=== PATIENT | female | born 1945 | race Two or more races ===

== ENCOUNTER 2018-08-02 13:00 | Outpatient (CLI) | payer OTHER | END 2018-08-02 13:09 | disposition home or self-care (01) | LOC: RAD 501 13:00 | DX: M25.531 Pain in right wrist (principal); M25.532 Pain in left wrist; M79.641 Pain in right hand; M79.642 Pain in left hand ==

== ENCOUNTER 2018-08-21 08:13 | Outpatient (CLI) | payer OTHER | END 2018-08-21 08:17 | disposition home or self-care (01) | LOC: NUCLEAR 08:13 | DX: M81.0 Age-related osteoporosis without current pathological fracture (principal) ==

== ENCOUNTER 2018-08-28 08:21 | Outpatient (CLI) | payer OTHER | END 2018-08-28 08:34 | disposition home or self-care (01) | LOC: SONOGRAMA 08:21 | DX: M25.511 Pain in right shoulder (principal) ==

== ENCOUNTER → 2018-08-28 11:13 | Outpatient (CLI) | payer OTHER | END | disposition home or self-care (01) | LOC: LAB 11:13 | DX: E83.42 Hypomagnesemia (principal); E88.89 Other specified metabolic disorders; M81.8 Other osteoporosis without current pathological fracture; E56.1 Deficiency of vitamin K ==

== ENCOUNTER → 2018-09-25 | Outpatient (CLI) | payer OTHER | END | disposition home or self-care (01) | LOC: TOM 10:47 | DX: M19.031 Primary osteoarthritis, right wrist (principal) ==

== ENCOUNTER 2018-12-18 08:04 | Outpatient (CLI) | payer OTHER ==
[2018-12-20] MEDS ORDERED: DILTIAZEM 24HR240 MG PO (14:50)
[2018-12-20] MEDS ORDERED: ASA81 MG PO (14:50)
[2018-12-20] MEDS ORDERED: HYDROCHLOROTHIA25 MG PO (14:50)
[2018-12-20] MEDS ORDERED: LIPITOR40 MG PO (14:51)
== END 2018-12-18 08:18 | disposition home or self-care (01) ==
LOC: LAB 08:04
DX: D64.89 Other specified anemias (principal); E88.89 Other specified metabolic disorders; D68.8 Other specified coagulation defects; N39.0 Urinary tract infection, site not specified; Z22.322 Carrier or suspected carrier of Methicillin resistant Staphylococcus aureus; Z76.89 Persons encountering health services in other specified circumstances; I49.8 Other specified cardiac arrhythmias

== ENCOUNTER 2018-12-28 07:34 | Outpatient (CLI) | payer OTHER ==
[~2018-12-28 07:34] MED LIST: ASA81 MG PO; DILTIAZEM 24HR240 MG PO; HYDROCHLOROTHIA25 MG PO; LIPITOR40 MG PO
== END 2018-12-28 07:44 | disposition home or self-care (01) ==
LOC: LAB 07:34
DX: D68.8 Other specified coagulation defects (principal)

== ENCOUNTER 2019-01-01 05:20 | Day surgery (SDC) | payer OTHER | END 2019-01-01 17:00 | disposition home or self-care (01) | LOC: CIR.AMB 05:20 | DX: M19.131 Post-traumatic osteoarthritis, right wrist (principal); M65.841 Other synovitis and tenosynovitis, right hand | CPT/HCPCS: 25825; 25116; C1776 ==

== ENCOUNTER 2019-02-13 08:49 | Outpatient (CLI) | payer OTHER | END 2019-02-13 08:54 | disposition home or self-care (01) | LOC: RAD 501 08:49 | DX: M19.131 Post-traumatic osteoarthritis, right wrist (principal) ==

== ENCOUNTER 2019-02-16 09:10 | Outpatient (CLI) | payer OTHER | END 2019-02-16 09:15 | disposition home or self-care (01) | LOC: LAB 09:10 | DX: E88.89 Other specified metabolic disorders (principal); E56.1 Deficiency of vitamin K; E03.8 Other specified hypothyroidism; E21.2 Other hyperparathyroidism ==

== ENCOUNTER 2019-04-04 07:59 | Outpatient (CLI) | payer OTHER | END 2019-04-04 08:03 | disposition home or self-care (01) | LOC: RAD 07:59 | DX: M19.131 Post-traumatic osteoarthritis, right wrist (principal); Z98.1 Arthrodesis status ==

== ENCOUNTER 2019-10-01 08:22 | Outpatient (CLI) | payer OTHER | END 2019-10-01 09:00 | disposition home or self-care (01) | LOC: RAD 08:22 | DX: M19.131 Post-traumatic osteoarthritis, right wrist (principal); Z98.1 Arthrodesis status ==

== ENCOUNTER 2019-11-05 07:45 | Outpatient (CLI) | payer OTHER | END 2019-11-05 08:08 | disposition home or self-care (01) | LOC: LAB 07:45 | DX: D64.89 Other specified anemias (principal); M85.88 Other specified disorders of bone density and structure, other site; E88.89 Other specified metabolic disorders; M81.8 Other osteoporosis without current pathological fracture; E56.1 Deficiency of vitamin K; E55.9 Vitamin D deficiency, unspecified; M06.4 Inflammatory polyarthropathy ==

== ENCOUNTER → 2019-11-16 | Outpatient (CLI) | payer OTHER | END | disposition home or self-care (01) | LOC: SONOGRAMA 09:11 | DX: M65.88 Other synovitis and tenosynovitis, other site (principal) ==